=== PATIENT | female | born 1985 | race Hispanic/Latino ===

== ENCOUNTER 2021-09-25 09:25 | Inpatient (IN) | payer OTHER ==
[~2021-09-25 09:25] MED LIST: Bupivacaine 0.25% HCL 30 ML VIAL ONE; Lidocaine 2% MPF 10 ML AMP (For Epidural Use) ONE
[2021-09-25] MEDS ORDERED: Acetaminophen 500 MG TAB PO PRN (09:29)
[2021-09-25] MEDS ORDERED: Promethazine HCl 25 MG/ML VIAL IM PRN ×4 (09:29→19:43)
[2021-09-25] MEDS ORDERED: Diphenoxylate HCl/Atropine Tablet PO PRN (09:29)
[2021-09-25] MEDS ORDERED: Ondansetron PF 4 MG/2 ML Vial IVP PRN ×4 (09:29→19:43)
[2021-09-25] MEDS ORDERED: hydrALAZINE 20 MG/ML VIAL SLOW IVP PRN ×2 (09:29→19:43)
[2021-09-25] MEDS ORDERED: Misoprostol 200 MCG TAB PR PRN (09:29)
[2021-09-25] MEDS ORDERED: HYDROcodone/Acetaminophen 5/325 mg Tablet PO PRN (09:29)
[2021-09-25] MEDS ORDERED: Methylergonovine 0.2 MG/ML VIAL IM PRN (09:29)
[2021-09-25] MEDS ORDERED: Butorphanol Tartrate 1 MG/ML VIAL SLOW IVP PRN (09:29)
[2021-09-25] MEDS ORDERED: Carboprost 250 MCG/ML AMP IM PRN (09:29)
[2021-09-25] MEDS ORDERED: Lidocaine 1% (PF) 30 ML VIAL SC PRN (09:29)
[2021-09-25] MEDS ORDERED: Ibuprofen 800 MG TAB PO PRN (09:29)
[2021-09-25] MEDS ORDERED: Penicillin G Potassium 5 MILL.UNITS in Sodium Chloride 0.9% 100 ML IVPB SCH (09:30)
[2021-09-25] MEDS ORDERED: Lactated Ringer's 1,000 ML IV SCH (09:30)
[2021-09-25] MEDS ORDERED: NS w/ Oxytocin 30 units 500 ML IV SCH ×3 (09:30→19:43)
[2021-09-25 10:46] LABS: Hemoglobin 12.2 g/dL (12.0-15.5); Mean Corpuscular HGB CONC 33.9 g/dL (32.0-36.0); Mean Corpuscular Hemoglobin 30.9 pg (27.0-33.0); Mean Corpuscular Volume 91.1 fl (81.6-98.3); Mean Platelet Volume 11.6 fl (7.4-10.4); Platelet Count 188 10x3/uL (150-450); RBC Distribution Width 13.5 % (11.5-14.5); Red Blood Cell (RBC) Count 3.95 10x6/uL (3.90-5.03); White Blood Cell (WBC) Count 9.1 10x3/uL (3.5-10.5)
[2021-09-25 11:32] LABS: Hep B Surf Ag Non-Reactive S/CO (NonReactive); Syphilis Antibody Nonreactive (Nonreactive); Syphilis Antibody Index 0.04 S/CO (<1.00 Non-Reactive)
[2021-09-25 11:35] VITALS: BMI 32.9
[2021-09-25 11:35] LABS: HBSAg Index 0.25 S/CO (0-0.99)
[2021-09-25] MEDS ORDERED: Fentanyl 2 mcg/Bup 0.1% Cadd 100 ML ONE (12:01)
[2021-09-25] MEDS ORDERED: diphenhydrAMINE 50 MG/ML VIAL IVP PRN ×2 (13:14→16:24)
[2021-09-25] MEDS ORDERED: Moisturizing Cream (Eucerin) 113 GM JAR TOP PRN ×2 (13:14→16:24)
[2021-09-25] MEDS ORDERED: ePHEDrine Sulfate 50 MG/10 ML VIAL SLOW IVP PRN (13:14)
[2021-09-25] MEDS ORDERED: Naloxone HCl 0.4 mg/ml Vial IVP PRN ×4 (13:14→16:24)
[2021-09-25] MEDS ORDERED: Acetaminophen 325 MG TAB PO PRN (13:14)
[2021-09-25] MEDS ORDERED: Fentanyl 2 mcg/Bupivacaine 0.1% Cassette 100 ML EPIDURAL SCH (13:15)
[2021-09-25] MEDS ORDERED: Communication Order-Pharmacy FS SCH ×2 (13:15→16:30)
[2021-09-25] MEDS ORDERED: Lactated Ringer's 500 ML IV PRN (13:19)
[2021-09-25 13:40] LABS: SARS-CoV-2 NAA Rapid Test Not Detected (NotDetected)
[2021-09-25] MEDS: Penicillin G 2.5 MILL.units 2.5 MILL.UNITS in Premix Bag 1 BAG IVPB SCH ×2 (14:45→17:38)
[2021-09-25] MEDS ORDERED: CEFAZOLIN 1 GM VIAL ONE (14:58)
[2021-09-25 16:00] LABS: RapidComm Collect By CBN; pH (Cord, venous) 7.288 (7.250-7.350)
[2021-09-25] MEDS ORDERED: Ondansetron PF 4 MG/2 ML Vial ONE (16:00)
[2021-09-25] MEDS ORDERED: Oxytocin 10 UNITS/ML VIAL ONE ×2 (16:00→16:03)
[2021-09-25] MEDS ORDERED: Dexamethasone 4 mg/ml Vial ONE (16:00)
[2021-09-25 16:01] LABS: RapidComm Collect By cbn
[2021-09-25] MEDS ORDERED: Morphine PF 10 MG/10 ML VIAL ONE (16:17)
[2021-09-25] MEDS ORDERED: Promethazine HCl 25 MG SUPP PR PRN (16:24)
[2021-09-25] MEDS ORDERED: Naloxone HCl 0.4 mg/ml Vial IV PRN (16:24)
[2021-09-25] MEDS ORDERED: Ketorolac Tromethamine 30 MG/ML VIAL IVP PRN (16:24)
[2021-09-25] MEDS ORDERED: Ketorolac Tromethamine 30 MG/ML VIAL ONE (16:45)
[2021-09-25] MEDS ORDERED: Boostrix 0.5 ML (Tdap) VIAL IM ONE (19:43)
[2021-09-25] MEDS ORDERED: Bisacodyl 10 MG SUPP PR PRN (19:43)
[2021-09-25] MEDS ORDERED: Lanolin Ointment 7 GM TUBE TOP PRN (19:43)
[2021-09-25] MEDS ORDERED: diphenhydrAMINE 25 MG CAP PO PRN (19:43)
[2021-09-25] MEDS: Docusate 100 MG CAP PO SCH (20:26)
[2021-09-25] MEDS: Ferrous Sulfate 325 MG TAB PO SCH (20:26)
[2021-09-25] MEDS: Ketorolac Tromethamine 30 MG/ML VIAL IVP SCH (23:09)
[2021-09-26 05:03] LABS: Hemoglobin 10.3 g/dL (12.0-15.5); Mean Corpuscular HGB CONC 34.8 g/dL (32.0-36.0); Mean Corpuscular Hemoglobin 31.5 pg (27.0-33.0); Mean Corpuscular Volume 90.5 fl (81.6-98.3); Mean Platelet Volume 11.8 fl (7.4-10.4); Platelet Count 171 10x3/uL (150-450); RBC Distribution Width 13.5 % (11.5-14.5); Red Blood Cell (RBC) Count 3.27 10x6/uL (3.90-5.03); White Blood Cell (WBC) Count 14.7 10x3/uL (3.5-10.5)
[2021-09-26] MEDS: Ketorolac Tromethamine 30 MG/ML VIAL IVP SCH ×3 (05:43→18:22)
[2021-09-26] MEDS: Prenatal Vitamin 1 TAB PO SCH (08:56)
[2021-09-26] MEDS: Docusate 100 MG CAP PO SCH ×2 (08:56→21:36)
[2021-09-26] MEDS: Ferrous Sulfate 325 MG TAB PO SCH ×2 (08:56→21:38)
[2021-09-26] MEDS: HYDROcodone/Acetaminophen 5/325 mg Tablet PO PRN ×3 (13:41→21:37)
[2021-09-26] MEDS: metroNIDAZOLE 500 MG TAB PO SCH ×2 (14:54→21:36)
[2021-09-26] MEDS: Cephalexin 500 MG CAP PO SCH ×2 (14:55→21:36)
[2021-09-26] MEDS: Simethicone Chewable 80 MG TAB PO PRN (18:22)
[2021-09-27] MEDS: Ibuprofen 800 MG TAB PO SCH ×4 (00:24→21:35)
[2021-09-27] MEDS: Simethicone Chewable 80 MG TAB PO PRN ×3 (00:25→21:36)
[2021-09-27] MEDS: HYDROcodone/Acetaminophen 5/325 mg Tablet PO PRN ×4 (01:57→13:51)
[2021-09-27] MEDS: Penicillin G 2.5 MILL.units 2.5 MILL.UNITS in Premix Bag 1 BAG IVPB SCH (06:11)
[2021-09-27] MEDS: Docusate 100 MG CAP PO SCH ×2 (08:54→21:35)
[2021-09-27] MEDS: metroNIDAZOLE 500 MG TAB PO SCH ×3 (08:54→21:35)
[2021-09-27] MEDS: Cephalexin 500 MG CAP PO SCH ×3 (08:54→21:35)
[2021-09-27] MEDS: Prenatal Vitamin 1 TAB PO SCH (08:54)
[2021-09-27] MEDS: Ferrous Sulfate 325 MG TAB PO SCH ×2 (08:55→19:27)
[2021-09-27] MEDS: HYDROcodone/Acetaminophen 10/325 mg Tablet PO SCH ×2 (18:41→21:35)
[2021-09-27 21:19] VITALS: TEMP 97.9
[2021-09-28] MEDS: HYDROcodone/Acetaminophen 10/325 mg Tablet PO SCH ×5 (03:23→15:29)
[2021-09-28] MEDS: Ibuprofen 800 MG TAB PO SCH ×2 (05:21→13:38)
[2021-09-28 07:32] VITALS: BP 113/65
[2021-09-28] MEDS: Prenatal Vitamin 1 TAB PO SCH (08:14)
[2021-09-28] MEDS: Cephalexin 500 MG CAP PO SCH ×2 (08:14→15:28)
[2021-09-28] MEDS: Docusate 100 MG CAP PO SCH (08:14)
[2021-09-28] MEDS: metroNIDAZOLE 500 MG TAB PO SCH ×2 (08:14→15:28)
[2021-09-28] MEDS: Ferrous Sulfate 325 MG TAB PO SCH (08:18)
[2021-09-28] MEDS: Simethicone Chewable 80 MG TAB PO PRN (08:19)
[2021-09-28] MEDS ORDERED: Milk Of Magnesia 30 ML UDCUP PO SCH (11:00)
== END 2021-09-28 17:15 | disposition home or self-care (01) | DRG 788 ==
LOC: CSHLD 09:25 → CSHPP 19:55
PROVIDERS: ADMIT Family Medicine; ATTEND Family Medicine
PROC: 10D00Z1 Extraction of Products of Conception, Low, Open Approach (ICD-10-PCS; principal; 2021-09-25)
PROC: 10907ZC Drainage of Amniotic Fluid, Therapeutic from Products of Conception, Via Natural or Artificial Opening (ICD-10-PCS; 2021-09-25)
PROC: 3E033VJ Introduction of Other Hormone into Peripheral Vein, Percutaneous Approach (ICD-10-PCS; 2021-09-25)
DX: O36.5930 Maternal care for other known or suspected poor fetal growth, third trimester, not applicable or unspecified (principal); Z3A.38 38 weeks gestation of pregnancy; Z37.0 Single live birth; Z20.822 Contact with and (suspected) exposure to COVID-19; O34.13 Maternal care for benign tumor of corpus uteri, third trimester; O76 Abnormality in fetal heart rate and rhythm complicating labor and delivery; D25.2 Subserosal leiomyoma of uterus
CPT/HCPCS: 36415; 51702; 82805; 85027; 86780; 86850; 86900; 86901; 87340; J1100; J1885; J2274; J2405; J2540; J2590; J3490; S0020; U0002